=== PATIENT | male | born 1995 | race Two or more races ===

== ENCOUNTER 2020-12-19 08:31 | Emergency (ER) | payer OTHER ==
[~2020-12-19] VITALS: Ht 175.3 cm; Wt 63.5 kg
[2020-12-19] MEDS ORDERED: OLANZAPINE 10 MG VIAL IM ONE ×2 (08:48→09:00)
[2020-12-19] MEDS ORDERED: LORAZEPAM INJ 2 MG/ML VIAL ONE ×2 (08:49→15:41)
[2020-12-19 09:00] LABS: BASOPHILS # (AUTO) 0.1 K/uL (0.0-0.2); BASOPHILS % (AUTO) 0.5 % (0.0-2.0); EOSINOPHILS % (AUTO) 0.3 % (0.0-6.0); HEMATOCRIT 44 % (39-51); HEMOGLOBIN 15.2 g/dL (13.5-17.5); LYMPHOCYTES # (AUTO) 2.2 K/uL (0.8-4.8); LYMPHOCYTES % (AUTO) 19.6 % (20.0-44.0); MEAN CORPUSCULAR HGB CONC 34 g/dl (31.0-36.0); MEAN CORPUSCULAR VOLUME 88 fL (80-96); MONOCYTES # (AUTO) 0.8 K/uL (0.1-1.30); MONOCYTES % (AUTO) 6.9 % (2.0-12.0); NEUTROPHILS # (AUTO) 8.4 K/uL (1.8-8.9); NEUTROPHILS % (AUTO) 72.7 % (43.0-81.0); PLATELET COUNT (AUTO) 267 K/uL (150-450); WHITE BLOOD COUNT (AUTO) 11.5 K/uL (4.3-11.0)
[2020-12-19] MEDS ORDERED: LORAZEPAM INJ 2 MG/ML VIAL IM ONE ×2 (09:00→15:30)
[2020-12-19 09:04] LABS: CALCIUM, SERUM 9.6 mg/dL (8.5-10.1); CARBON DIOXIDE 30 mmol/L (21-32); CHLORIDE 102 mmol/L (98-107); CREATININE 1.1 mg/dL (0.6-1.3); GLUCOSE 106 mg/dL (74-106); POTASSIUM 3.4 mmol/L (3.5-5.1); SODIUM SERUM 142 mmol/L (136-145); UREA NITROGEN, BLOOD 18 mg/dL (7-18)
[2020-12-19 09:09] LABS: ACETAMINOPHEN < 10 ug/ml (10-30); ALANINE AMINOTRANSFERASE 81 U/L (12-78); ALBUMIN 4.8 g/dL (3.4-5.0); ALCOHOL, BLOOD < 2 mg/dL (0-0); ALKALINE PHOSPHATASE 99 U/L (46-116); ASPARTATE AMINOTRANSFERASE 54 U/L (15-37); BILIRUBIN,DIRECT 0.2 mg/dL (0.0-0.2); TOTAL PROTEIN, SERUM 8.4 g/dL (6.4-8.2)
--- NOTE | 2020-12-19 11:01 | NUR ---
THE PATIENT IS SLEEPING IN BED. RESPIRATION REGULAR AND UNLABORED. IN NO APPARENT DISTRESS. EASILY RESPONSIVE TO VERBAL STIMULI. WILL CONTINUE TO MONITOR THE PATIENT.
--- NOTE | 2020-12-19 11:42 | NUR ---
BUMPER OPERATOR, VIDHI, CALLED AND STATES THAT PT NEEDS TOX SCREEN AND COVID SO CRISIS CLINICAN, ART, CAN SEE THE PT
[2020-12-19] MEDS ORDERED: HALOPERIDOL LACTATE INJ 5 MG/ML VIAL IM ONE (15:30)
[2020-12-19] MEDS ORDERED: diphenhydrAMINE HCL 50 MG/ML VIAL IM ONE (15:30)
[2020-12-19] MEDS ORDERED: diphenhydrAMINE HCL 50 MG/ML VIAL ONE (15:40)
[2020-12-19] MEDS ORDERED: HALOPERIDOL LACTATE INJ 5 MG/ML VIAL ONE (15:40)
--- NOTE | 2020-12-19 15:50 | NUR ---
PT AWAKEN FROM SLEEP. PT IS AGITATED, YELLING AND SCREAMING PROFANITY. MD MADE AWARE. ORDERS RECEIVED AND MEDICATED ORDERED
[2020-12-19 18:04] LABS: BILIRUBIN,URINE SMALL (NEGATIVE); COLOR,URINE YELLOW (YELLOW); LEUKOCYTE ESTERASE ,URINE Negative (NEGATIVE); NITRITE, URINE Negative (NEGATIVE); PH,URINE 5.5 (5.0-8.0); PROTEIN,URINE 30 mg/dl (NEGATIVE); UGLUCOSE Negative (NEGATIVE); UROBILINOGEN,URINE 0.2 EU/dL (0.2)
--- NOTE | 2020-12-19 18:14 | NUR ---
PINKY IS COMING TO EVALUATE PT
[2020-12-19 18:30] LABS: BACTERIA,URINE Rare /HPF (None Seen); RBC,URINE NONE SEEN /HPF (0-2); SQUAMOUS EPITHELIAL CELL,UR Few /HPF (None Seen); WBC,URINE NONE SEEN /HPF (0-3)
--- NOTE | 2020-12-19 19:57 | NUR ---
PINKY AT BED SIDE UNABLE TO EVALUATE THE PT AT THIS TIME . WILL F/U
--- NOTE | 2020-12-20 10:03 | NUR ---
PATIENT STILL ASLEEP, EASILY AROUSABLE. VSS. NO DISTRESS NOTED.
--- NOTE | 2020-12-20 11:19 | NUR ---
tracy social worker aide at bedside for consult
--- NOTE | 2020-12-20 11:35 | NUR ---
SS Consult: The pt. is a 25 year old male. FRANCESCA met with pt. bedside. The pt. is Alert & oriented x 3. the pt. appears unkempt with blood shot eyes and makes poor eye contact. Pt.'s speech is WNL and pt. has dysphoric mood (irritable, defensive, guarded). Pt. is not oriented to situation. pt. states he was at a [facility] waiting for his mother, Miranda [phone] when police arrested him. Pt. 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 Per pt. 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 Pt. states he has been experiencing homelessness for about 8 years and sleeps in his car which is parked in [facility]. Pt. denies receiving any financial assistance. Pt. denies hallucinations and denies SI/HI. FRANCESCA called academic support assistant, Jagdish Chen, [facility] [phone] to assess pt. that is on a 5150 hold for DTO. Per Jagdish, he, will see pt. ABELARDO. Per pt.'s request, FRANCESCA notified his Mother, Miranda that he is at [facility]. She expressed understanding and states they have been experiencing homelessness for about 8 years. FRANCESCA provided pt. with resources and pt. refused them. Pt. became irritable and refused to provide further information. Pt. refused to sign homeless waiver. FRANCESCA placed resources and waiver in pt.'s chart.
--- NOTE | 2020-12-20 12:53 | NUR ---
PATIENT SEEN AND EVALUATED BY NORAH GRANDA LCSW.
--- NOTE | 2020-12-20 15:57 | NUR ---
PATIENT IS CLEARED FOR DISCHARGE BY MEDICAL TECHNOLOGIST CHIEF AND ART CAPPELA. DR. LIU IS AWARE.
--- NOTE | 2020-12-20 16:46 | NUR ---
PATIENT A/OX4, BREATHING EVEN AND UNLABORED, NO SOB NOTED. NEEDS ATTENDED. KEPT COMFORTABLE. AMBULATORY WITH STEADY GAIT. Patient given written and verbal discharge instructions. Patient verbalizes understanding of instructions. Patient is ambulatory with steady gait. Refuses offer of intermediate placement. Patient given list of available shelters in surrounding area.
[2020-12-20 16:49] VITALS: BP 131/79
== END 2020-12-20 16:49 | disposition home or self-care (01) ==
LOC: ER 08:31
DX: R41.0 Disorientation, unspecified (principal); R45.1 Restlessness and agitation; F15.10 Other stimulant abuse, uncomplicated; Z59.0 Homelessness
CPT/HCPCS: 36415; 80048; 80076; 80143; 80307; 80320; 81001; 85025; 87426; 96372 ×2; 99291; C9803; J1200; J1630; J2060 ×2; J3490; G0480